=== PATIENT | male | born 1960 | race Caucasian/White ===

== ENCOUNTER 2020-11-01 10:32 | Outpatient (CLI) | payer BC | END 2020-11-01 10:33 | disposition home or self-care (01) | LOC: BICRAD 10:32 | PROVIDERS: ATTEND Student in an Organized Health Care Education/Training Program | DX: M54.5 Low back pain (principal); M25.551 Pain in right hip; M25.552 Pain in left hip; G89.29 Other chronic pain; M16.0 Bilateral primary osteoarthritis of hip | CPT/HCPCS: 72100; 72170; 73521 ==